=== PATIENT | female | born 1945 | race Caucasian/White ===

== ENCOUNTER 2018-07-13 12:01 | Emergency (ER) | payer MEDICARE, BC ==
[~2018-07-13] VITALS: Ht 162.6 cm; Wt 91.3 kg
[~2018-07-13 12:01] MED LIST: ADVIL 200MG TA200 MG PO; AMLODIPINE5 MG PO; BION TEARS OP; CALCIUM + D 6001 TAB PO; HCTZ 25MG TAB25 MG PO; LOW DOSE ASPIRI81 MG PO; PROVENTIL0.09 MG/Ac IH; SINGULAIR10 MG PO; SYNTHROID0.112 MG PO; TOPROL XL50 MG PO
[2018-07-13 12:13] VITALS: TEMP 97.9
[2018-07-13 13:07] LABS: BASO % 0.2 % (0.0-2.0); EOS # 0.4 (0.0-0.7); EOS % 4.6 % (0-4.0); GRAN % 69.6 % (42.2-75.2); HEMATOCRIT 39.4 % (37.0-47.0); HEMOGLOBIN 13.5 g/dl (12.5-16.0); LYMPH # 1.4 (1.2-3.4); LYMPH % 16.4 % (20.0-51.0); MEAN CELL VOLUME 90 fl (80.0-100.0); MEAN CORPUSCULAR HEMOGLOBIN 31 pg (27.0-31.0); MEAN CORPUSCULAR HGB CONC 34 g/dl (33.0-37.0); MEAN PLATELET VOLUME 8.9 fl (7.4-10.4); MONO # 0.8 (0.1-0.6); MONO % 8.7 % (1.7-9.3); PLATELET COUNT 185 K/mm3 (130-400); REDCELL DISTRIBUTION WIDTH-CV 14.4 % (11.5-14.5)
[2018-07-13 13:13] LABS: INR 1.8 (0.8-3.0); PROTHROMBIN TIME 20.1 SECONDS (9.7-12.8)
[2018-07-13 13:18] LABS: ALBUMIN 4.3 gm/dL (3.5-5.0); BILIRUBIN,TOTAL 0.7 mg/dL (0.0-1.0); CALCIUM 9.2 mg/dL (8.4-10.2); CREATININE, serum 0.58 mg/dL (0.52-1.25); POTASSIUM 3.6 mmol/L (3.4-5.0); TOTAL PROTEIN 7.4 gm/dL (6.4-8.2)
[2018-07-13 15:04] VITALS: BP 139/67; PULSE 71
== END 2018-07-13 17:06 | disposition home or self-care (01) ==
LOC: COL.ER 12:01
PROVIDERS: Emergency Medicine
DX: S09.90XA Unspecified injury of head, initial encounter (principal); S01.01XA Laceration without foreign body of scalp, initial encounter; I48.91 Unspecified atrial fibrillation; Z79.01 Long term (current) use of anticoagulants; Z79.82 Long term (current) use of aspirin; W18.39XA Other fall on same level, initial encounter; Y92.009 Unspecified place in unspecified non-institutional (private) residence as the place of occurrence of the external cause

== ENCOUNTER 2018-07-25 13:25 | Emergency (ER) | payer MEDICARE, BC ==
[2018-07-25 13:30] VITALS: PULSE 76
== END 2018-07-25 13:43 | disposition home or self-care (01) ==
LOC: COL.ER 13:25
DX: Z48.02 Encounter for removal of sutures (principal)

== ENCOUNTER → 2019-02-22 | Outpatient (CLI) | payer MEDICARE, BC | LOC: COL.RAD 12:15 | DX: G31.9 Degenerative disease of nervous system, unspecified (principal) | CPT/HCPCS: A9585 ==